=== PATIENT | female | born 1970 | race Caucasian/White ===

== ENCOUNTER → 2017-11-12 | Outpatient (CLI) | payer BC | END | disposition home or self-care (01) | LOC: KCIC US 10:38 | DX: N94.6 Dysmenorrhea, unspecified (principal) | CPT/HCPCS: 76830; 76856 ==

== ENCOUNTER 2019-09-02 23:17 | Emergency (ER) | payer BC ==
[~2019-09-02] VITALS: Ht 162.6 cm; Wt 140.0 kg
[2019-09-02 23:47] LABS: BASO # 0.1 x10^3/uL (0.0-0.2); BASO % 1 % (0-3); EOS % 0 % (0-3); HEMATOCRIT 41.1 % (36.0-47.0); HEMOGLOBIN 14.3 g/dL (12.0-15.5); LYMPH # 1.9 x10^3/uL (1.0-4.8); LYMPH % 16 % (24-48); MEAN CORPUSCULAR HEMOGLOBIN 33 pg (25-35); MEAN CORPUSCULAR HGB CONC 35 g/dL (31-37); MEAN CORPUSCULAR VOLUME 95 fL (79-100); MONO # 0.7 x10^3/uL (0.0-1.1); MONO % 6 % (0-9); NEUT # 9.2 x10^3/uL (1.8-7.7); NEUT % 78 % (31-73); PLATELET COUNT 288 x10^3/uL (140-400); RED BLOOD COUNT 4.31 x10^6/uL (3.50-5.40); RED CELL DISTRIBUTION WIDTH 14.3 % (11.5-14.5); WHITE BLOOD COUNT 11.9 x10^3/uL (4.0-11.0)
[2019-09-02 23:49] LABS: BILIRUBIN,URINE NEGATIVE (NEG); CLARITY,URINE CLEAR; COLOR,URINE YELLOW; NITRITE,URINE NEGATIVE (NEG); PH,URINE 6.5; PROTEIN,URINE 30 mg/dL (NEG-TRACE); UROBILINOGEN,URINE 0.2 mg/dL (0.2 mg/dL)
[2019-09-02 23:56] LABS: AMPHETAMINE/METHAMPHETAMINE NEG (NEG); BARBITURATES NEG (NEG); BENZODIAZEPINES NEG (NEG); CANNABINOIDS NEG (NEG); COCAINE NEG (NEG); METHADONE NEG (NEG); OPIATES NEG (NEG); PHENCYCLIDINE NEG (NEG)
[2019-09-02 23:56] LABS: CALCIUM 9.1 mg/dL (8.5-10.1); CREATININE 0.6 mg/dL (0.6-1.0); GFR 107.6; POTASSIUM 3.6 mmol/L (3.5-5.1)
--- NOTE | 2019-09-02 23:58 | PHYS DOC ---
Past Medical History Past Medical History: Anxiety, Depression, Other Additional Past Medical Histor: ETOH ABUSE (KEVEN MARTINEZ SKI MAKER WOOD) Past Surgical History: Hysterectomy (KEVEN MARTINEZ SKI [employer]KER WOOD) Alcohol Use: Heavy (KEVEN MARTINEZ APRN) Adult General Chief Complaint Chief Complaint: ALCOHOL INTOXICATION HPI HPI Patient is a 48 year old female who presents with was sober from alcohol for 2 years and then began drinking tonight. States she's been drinking all day but would not give me a reason why. Her is here and asking if we can find her a place for rehabilitation. Patient states she drank a 12 pack today. Patient states she is very anxious. Patient has been vomiting. Patient denies any pain, chest pain, shortness of air, abdominal pain, SI, HI, headache, dizziness, , visual changes, numbness or tingling, fevers, diarrhea, weakness. (KEVEN MARTINEZ [employer]) Review of Systems Review of Systems GI: Denies abdominal pain. + nausea, +vomiting, denies bloody stools or diarrhea [] Neurologic: Anxious. Denies headache, focal weakness or sensory changes [] All other systems were reviewed and found to be within normal limits, except as documented in this note. (KEVEN MARTINEZ APRN) Current Medications Current Medications Current Medications Medications (Trade) Dose Ordered Sig/Yury Start Time Stop Time Status Last Admin Dose Admin Famotidine (Pepcid Vial) 20 mg 1X ONCE 09/03/19 04:15 09/03/19 04:16 Ondansetron HCl (Zofran) 4 mg 1X ONCE 09/03/19 04:15 09/03/19 04:16 Sodium Chloride 1,000 ml @ 1,000 mls/hr 1X ONCE 09/03/19 00:00 09/03/19 00:59 DC 09/02/19 23:40 1,000 MLS/HR (STEFAN DICKSON DO) Allergies Allergies Allergies Coded Allergies Type Severity Reaction Last Updated Verified No Known Drug Allergies 09/02/19 No (STEFAN DICKSON DO) Physical Exam Physical Exam Constitutional: Well developed, well nourished, no acute distress, non-toxic appearance. Alcohol intoxication. [] HENT: Normocephalic, atraumatic, bilateral external ears normal, oropharynx moist, no oral exudates, nose normal. [] Eyes: PERRLA, EOMI, conjunctiva normal, no discharge. [] Neck: Normal range of motion, no tenderness, supple, no stridor. [] Cardiovascular:Heart rate regular rhythm, no murmur [] Lungs & Thorax: Bilateral breath sounds clear to auscultation [] Abdomen: Bowel sounds normal, soft, no tenderness, no masses, no pulsatile masses. [] Skin: Warm, dry, no erythema, no rash. [] Back: No tenderness, no CVA tenderness. [] Extremities: No tenderness, no cyanosis, no clubbing, ROM intact, no edema. [] Neurologic: Alert and oriented X 3, normal motor function, normal sensory function, no focal deficits noted. [] Psychologic: Affect normal, judgement normal, mood normal. [] (KEVEN MARTINEZ APRN) Current Patient Data Vital Signs Vital Signs Date Time Temp Pulse Resp B/P (MAP) Pulse Ox O2 Delivery O2 Flow Rate FiO2 09/03/19 02:17 89 20 143/68 (93) 98 Room Air 09/02/19 23:18 98.5 98.5 ([facility]) Lab Values Laboratory Tests Test 09/02/19 23:30 09/02/19 23:35 09/02/19 23:37 White Blood Count 11.9 x10^3/uL (4.0-11.0) H Red Blood Count 4.31 x10^6/uL (3.50-5.40) Hemoglobin 14.3 g/dL (12.0-15.5) Hematocrit 41.1 % (36.0-47.0) Mean Corpuscular Volume 95 fL (79-100) Mean Corpuscular Hemoglobin 33 pg (25-35) Mean Corpuscular Hemoglobin Concent 35 g/dL (31-37) Red Cell Distribution Width 14.3 % (11.5-14.5) Platelet Count 288 x10^3/uL (140-400) Neutrophils (%) (Auto) 78 % (31-73) H Lymphocytes (%) (Auto) 16 % (24-48) L Monocytes (%) (Auto) 6 % (0-9) Eosinophils (%) (Auto) 0 % (0-3) Basophils (%) (Auto) 1 % (0-3) Neutrophils # (Auto) 9.2 x10^3/uL (1.8-7.7) H Lymphocytes # (Auto) 1.9 x10^3/uL (1.0-4.8) Monocytes # (Auto) 0.7 x10^3/uL (0.0-1.1) Eosinophils # (Auto) 0.0 x10^3/uL (0.0-0.7) Basophils # (Auto) 0.1 x10^3/uL (0.0-0.2) Prothrombin Time 13.0 SEC (11.7-14.0) Prothrombin Time INR 1.0 (0.8-1.1) Sodium Level 135 mmol/L (136-145) L Potassium Level 3.6 mmol/L (3.5-5.1) Chloride Level 93 mmol/L (98-107) L Carbon Dioxide Level 32 mmol/L (21-32) Anion Gap 10 (6-14) Blood Urea Nitrogen 4 mg/dL (7-20) L Creatinine 0.6 mg/dL (0.6-1.0) Estimated GFR (Cockcroft-Gault) 107.6 BUN/Creatinine Ratio 7 (6-20) Glucose Level 98 mg/dL (70-99) Calcium Level 9.1 mg/dL (8.5-10.1) Total Bilirubin 0.7 mg/dL (0.2-1.0) Aspartate Amino Transferase (AST) 121 U/L (15-37) H Alanine Aminotransferase (ALT) 139 U/L (14-59) H Alkaline Phosphatase 97 U/L (46-116) Troponin I Quantitative < 0.017 ng/mL (0.000-0.055) Total Protein 7.6 g/dL (6.4-8.2) Albumin 4.2 g/dL (3.4-5.0) Albumin/Globulin Ratio 1.2 (1.0-1.7) Lipase 129 U/L (73-393) Ethyl Alcohol Level 249 mg/dL (0-10) H Urine Collection Type Void Urine Color Yellow Urine Clarity Clear Urine pH 6.5 Urine Specific [place] 1.010 Urine Protein 30 mg/dL (NEG-TRACE) Urine Glucose (UA) Negative mg/dL (NEG) Urine Ketones (Stick) Negative mg/dL (NEG) Urine Blood Large (NEG) Urine Nitrite Negative (NEG) Urine Bilirubin Negative (NEG) Urine Urobilinogen Dipstick 0.2 mg/dL (0.2 mg/dL) Urine Leukocyte Esterase Negative (NEG) Urine RBC 6-10 /HPF (0-2) Urine WBC 1-4 /HPF (0-4) Urine Squamous Epithelial Cells Few /LPF Urine Bacteria 0 /HPF (0-FEW) Urine Opiates Screen Neg (NEG) Urine Methadone Screen Neg (NEG) Urine Barbiturates Neg (NEG) Urine Phencyclidine Screen Neg (NEG) Urine Amphetamine/Methamphetamine Neg (NEG) Urine Benzodiazepines Screen Neg (NEG) Urine Cocaine Screen Neg (NEG) Urine Cannabinoids Screen Neg (NEG) Urine Ethyl Alcohol Pos (NEG) POC Urine HCG, Qualitative Hcg negative (Negative) Laboratory Tests 09/02/19 23:30 Laboratory Tests 09/02/19 23:30 (STEFAN DICKSON DO) EKG EKG Sinus Rhythm and no STEMI[] Interpretation Time: [address] Dickson (KEVEN MARTINEZ APRN) Radiology/Procedures Radiology/Procedures [] (KEVEN MARTINEZ APRN) Course & Med Decision Making Course & Med Decision Making Alert and oriented. Speaks in full clear sentences. PERRLA. Patient is very anxious. No tremors or seen. Patient states when she withdrawal she doesn't usually have kind of a seizure. She does have a history of depression and anxiety. She denies taking any blood thinners. She denies falling or any injuries today. She denies LOC. Lungs are clear to auscultation in all lobes. Vital signs within normal limits. I have spokent to PAT team Maria R and she states she is on her way in to speak with the patient. 0100: Patient reported off to Dr Dickson (KEVEN MARTINEZ APRN) Course & Med Decision Making Patient declines inpatient rehab referral and requests discharge AMA, but then decides to wait for PAT consult. Outpatient resources provided. (STEFAN DICKSON DO) Dragon Disclaimer Dragon Disclaimer This electronic medical record was generated, in whole or in part, using a voice recognition dictation system. (KEVEN MARTINEZ APRN) Departure Departure Impression: Primary Impression: Alcohol abuse Disposition: HOME, SELF-CARE Condition: IMPROVED Referrals: LEIGHANN DUNLAP (PCP) Patient Instructions: Alcohol Problems Scripts Ondansetron Hcl (ZOFRAN) 4 Mg Tablet 1 TAB PO Q6HRS, #10 TAB 0 Refills Prov: STEFAN IDCKSON DO 09/03/19 Famotidine (PEPCID) 20 Mg Tablet 20 MG PO BID, #30 TAB Prov: STEFAN DICKSON DO 09/03/19 KEVEN MARTINEZ APRN Sep 02, 2019 23:58 STEFAN DICKSON DO Sep 03, 2019 04:00
[2019-09-03] MEDS ORDERED: IV NORMAL SALINE 1000ML BAG 1,000 ML IV ONE
[2019-09-03 00:01] LABS: BACTERIA,URINE 0 /HPF (0-FEW); SQUAMOUS EPITHELIAL CELL,UR FEW /LPF
[2019-09-03 00:02] LABS: ALBUMIN 4.2 g/dL (3.4-5.0); ALBUMIN/GLOBULIN RATIO 1.2 (1.0-1.7); TOTAL BILIRUBIN 0.7 mg/dL (0.2-1.0); TOTAL PROTEIN 7.6 g/dL (6.4-8.2)
[2019-09-03] MEDS ORDERED: ONDANSETRON PF 4 MG/2 ML VIAL. IVP ONE ×2 (00:30→04:15)
[2019-09-03] MEDS ORDERED: FAMOTIDINE 20 MG/2 ML VIAL ONE (01:28)
[2019-09-03] MEDS ORDERED: ONDA4TAB7 PO (02:04)
[2019-09-03] MEDS ORDERED: FAMO-63 PO (02:04)
[2019-09-03 02:17] VITALS: BP 143/68
[2019-09-03] MEDS ORDERED: FAMOTIDINE 20 MG/2 ML VIAL IVP ONE (04:15)
--- NOTE | 2019-09-03 05:15 | EKG ---
[facility] [address] [place] [address] Test Date: 2019-09-02 Test Time: 23:55:31 Pat Name: LUBNA HOPKINS Department: Room: Gender: F Solution Developer: : 1970 Requested By: KEVEN MARTINEZ Order Number: [id number] Reading MD: Measurements Intervals [place] Rate: 85 P: 138 IA: 118 QRS: 53 QRSD: 90 T: 69 QT: 384 QTc: 462 Interpretive Statements SINUS RHYTHM NON SPECIFIC ST-T ABNORMALITY (ELEVATION) OTHERWISE NORMAL ECG No previous ECG available for comparison
[2019-09-04] MEDS ORDERED: LORA-434 PO (14:48)
== END 2019-09-03 02:19 | disposition home or self-care (01) ==
LOC: ER 23:17
DX: F10.229 Alcohol dependence with intoxication, unspecified (principal); R11.2 Nausea with vomiting, unspecified; F41.9 Anxiety disorder, unspecified; F32.9 Major depressive disorder, single episode, unspecified; Z90.710 Acquired absence of both cervix and uterus
CPT/HCPCS: 36415; 80053; 80307; 81001; 81025; 83690; 84484; 85025; 85610; 93005; 96361; 96374; 96375; 96376; 99285; G0480; J2405; J3490; J7030

== ENCOUNTER 2019-09-04 14:04 | Emergency (ER) | payer BC ==
[~2019-09-04] VITALS: Ht 162.6 cm; Wt 63.6 kg
[~2019-09-04 14:04] MED LIST: FAMO-63 PO; ONDA4TAB7 PO
[2019-09-04 14:19] VITALS: BP 122/63
[2019-09-04] MEDS ORDERED: LORA-434 PO (14:48)
--- NOTE | 2019-09-04 14:48 | PHYS DOC ---
Past Medical History Past Medical History: Anxiety, Depression, Other Additional Past Medical Histor: ETOH ABUSE Past Surgical History: Hysterectomy Smoking Status: Current Every Day Smoker Alcohol Use: Heavy Adult General Chief Complaint Chief Complaint: alcohol withdrawal HPI HPI Patient is a 48 year old female who presents via EMS secondary to alcohol withdrawal symptoms. The patient has a history of alcohol abuse but has been reji an for the past 2 years until one week ago when she started drinking a 12 pack of beer daily. She was seen in the ER 2 days ago and labs were performed and the patient was given IV fluids and ultimately she decided to be discharged home after considering inpatient detox. She was given a prescription for Zofran and Pepcid. Patient has been taking these prescriptions. She did not drink alcohol yesterday but today she developed some anxiety and shaking-like symptoms so she drank 3 beers and then came to the ER for further assistance. She is here today requesting medication to help with her withdrawal symptoms. She has no history of alcohol withdrawal seizures. Patient denies suicidal or homicidal ideation. Review of Systems Review of Systems All other systems were reviewed and found to be within normal limits, except as documented in this note. Allergies Allergies Allergies Coded Allergies Type Severity Reaction Last Updated Verified No Known Drug Allergies 09/02/19 No Physical Exam Physical Exam Constitutional: Well developed, well nourished, no acute distress, non-toxic appearance. [] HENT: Normocephalic, atraumatic, bilateral external ears normal, oropharynx moist, no oral exudates, nose normal. [] Eyes: PERRLA, EOMI, conjunctiva normal, no discharge. [] Neck: Normal range of motion, no tenderness, supple, no stridor. [] Cardiovascular:Heart rate regular rhythm, no murmur [] Lungs & Thorax: Bilateral breath sounds clear to auscultation [] Abdomen: Bowel sounds normal, soft, no tenderness, no masses, no pulsatile masses. [] Skin: Warm, dry, no erythema, no rash. [] Back: No tenderness, no CVA tenderness. [] Extremities: No tenderness, no cyanosis, no clubbing, ROM intact, no edema. [] Neurologic: Alert and oriented X 3, normal motor function, normal sensory function, no focal deficits noted. [] Psychologic: Affect normal, judgement normal, mood normal. [] Current Patient Data Vital Signs Vital Signs Date Time Temp Pulse Resp B/P (MAP) Pulse Ox O2 Delivery O2 Flow Rate FiO2 09/04/19 14:19 98.4 87 16 122/63 (82) 98 Room Air 98.4 EKG EKG [] Radiology/Procedures Radiology/Procedures [] Course & Med Decision Making Course & Med Decision Making Patient seen for symptoms of all withdrawal. At this time she has declined labs and IV fluids. She is only requesting medications to help with her withdrawal symptoms. She appears very stable at this time; her examination is normal in her vital signs are stable. We'll discharge home with a prescription for Ativan and the patient is also encouraged to stop drinking. Dragon Disclaimer Dragon Disclaimer This electronic medical record was generated, in whole or in part, using a voice recognition dictation system. Departure Departure Impression: Primary Impression: Alcohol abuse Additional Impression: Alcohol withdrawal Disposition: 01 HOME, SELF-CARE Condition: STABLE Referrals: LEIGHANN DUNLAP (PCP) Patient Instructions: Alcohol Withdrawal Additional Instructions: Do not continue to drink if you are using Ativan. Please return to the ER if symptoms worsen. Scripts Lorazepam (ATIVAN) 1 Mg Tablet 1 MG PO TID for alcohol withdrawal, #15 TAB 0 Refills Prov: TAB THRASHER DO 09/04/19 Problem Qualifiers TAB THRASHER DO Sep 04, 2019 14:48
== END 2019-09-04 14:56 | disposition home or self-care (01) ==
LOC: ER 14:04
DX: F10.239 Alcohol dependence with withdrawal, unspecified (principal); F41.9 Anxiety disorder, unspecified; F32.9 Major depressive disorder, single episode, unspecified; F17.200 Nicotine dependence, unspecified, uncomplicated; Z90.710 Acquired absence of both cervix and uterus
CPT/HCPCS: 99284

== ENCOUNTER → 2020-04-19 | Outpatient (CLI) | payer BC, OTHER ==
[~2020-04-19] MED LIST changes: +ALPR0.25 PO; +BUPR150T15 PO; +CELE200C PO; +CETI10TA74 PO; +FLUO40CA9 PO; +LORA-434 PO; +estradiol TOP
[2020-04-19 09:48] LABS: ALBUMIN 4.1 g/dL (3.4-5.0); C-REACTIVE PROTEIN 1.5 mg/L (0-3.3); CALCIUM 9.4 mg/dL (8.5-10.1); CREATININE 0.7 mg/dL (0.6-1.0); GFR 89.7; POTASSIUM 4.1 mmol/L (3.5-5.1)
[2020-04-19 09:58] LABS: BASO # 0.1 x10^3/uL (0.0-0.2); BASO % 1 % (0-3); EOS # 0.2 x10^3/uL (0.0-0.7); EOS % 3 % (0-3); HEMATOCRIT 40.7 % (36.0-47.0); HEMOGLOBIN 13.7 g/dL (12.0-15.5); LYMPH # 2.5 x10^3/uL (1.0-4.8); LYMPH % 33 % (24-48); MEAN CORPUSCULAR HEMOGLOBIN 32 pg (25-35); MEAN CORPUSCULAR HGB CONC 34 g/dL (31-37); MEAN CORPUSCULAR VOLUME 96 fL (79-100); MONO # 0.5 x10^3/uL (0.0-1.1); MONO % 7 % (0-9); NEUT # 4.2 x10^3/uL (1.8-7.7); NEUT % 57 % (31-73); PLATELET COUNT 402 x10^3/uL (140-400); RED BLOOD COUNT 4.25 x10^6/uL (3.50-5.40); RED CELL DISTRIBUTION WIDTH 13.4 % (11.5-14.5); WHITE BLOOD COUNT 7.4 x10^3/uL (4.0-11.0)
--- NOTE | 2020-04-19 14:55 | RAD ---
Chest radiograph 04/19/2020 8:35 AM INDICATION: Tobacco abuse COMPARISON: None available TECHNIQUE: Frontal and lateral views of the chest are provided. FINDINGS: The cardiomediastinal silhouette is within normal limits. There are no pleural effusions. There is no pulmonary vascular congestion. There is no pneumothorax. The lungs are clear. No significant osseous abnormality is identified. IMPRESSION: No acute cardiopulmonary process. Electronically signed by: Anupama Nuno MD (04/19/2020 2:52 PM) [id number]
[2020-04-20 00:08] LABS: HEMOGLOBIN A1C 5.3 % (4.8-5.6)
== END | disposition home or self-care (01) ==
LOC: SURGPAT 15:55
PROVIDERS: ATTEND Orthopaedic Surgery
DX: Z01.812 Encounter for preprocedural laboratory examination (principal); M16.11 Unilateral primary osteoarthritis, right hip; Z96.651 Presence of right artificial knee joint; Z87.891 Personal history of nicotine dependence
CPT/HCPCS: 36415; 71046; 80048; 82040; 82306; 83036; 85025; 85610; 85730; 86140; 87641

== ENCOUNTER 2020-05-11 06:06 | Observation (INO) | payer OTHER ==
[~2020-05-11] VITALS: Ht 161.3 cm; Wt 65.3 kg
[2020-05-11] VITALS (8 sets, daily range): BP systolic 91–102; BP diastolic 48–65
[~2020-05-11 06:06] MED LIST changes: +ACETAMINOPHEN 500 MG TABLET PO PRN; +GABAPENTIN 300 MG CAPSULE. PO PRN; +MELOXICAM 7.5 MG TABLET PO PRN; +MORPHINE SULFATE 5 MG, KETOROLAC 30MG VIAL 30 MG, ROPIVacaine 0.5% PF 60 ML, EPINEPHrin... INT ART ONE; +NALT50TA PO; +TRANEXAMIC ACID 1,000 MG in IV NS 50ML -- 1ST BAG INJ ONE; +ceFAZolin SODIUM IV Push 1 GM VIAL. IVP PRN
[2020-05-11] MEDS: IV RINGERS,LACTATED 1000ML 1,000 ML IV SCH ×2 (06:44→10:43)
[2020-05-11] MEDS ORDERED: LIDOCAINE 2% PF 5 ML VIAL. ONE (07:00)
[2020-05-11] MEDS ORDERED: HYDROmorphone 2 MG/ML VIAL IV PRN (07:00)
[2020-05-11] MEDS ORDERED: PROPOFOL 10 MG/ML (20ML) VIAL. IV ONE (07:00)
[2020-05-11] MEDS ORDERED: fentaNYL PF VIAL 250 MCG/5 ML VIAL ONE (07:00)
[2020-05-11] MEDS ORDERED: fentaNYL PF VIAL 100 MCG/2 ML VIAL IV PRN ×2 (07:00)
[2020-05-11] MEDS ORDERED: ROCURONIUM 50 MG/5 ML VIAL. ONE ×2 (07:00→08:28)
[2020-05-11] MEDS ORDERED: MIDAZOLAM HCL/PF 2 MG/2 ML VIAL. ONE (07:00)
[2020-05-11] MEDS ORDERED: ONDANSETRON PF 4 MG/2 ML VIAL. IV PRN (07:00)
[2020-05-11] MEDS ORDERED: KETAMINE HCL IN NACL, ISO-OSM 50 MG/5 ML SYRINGE ONE (07:03)
[2020-05-11 07:43] LABS: PROTHROMBIN TIME PATIENT 12.6 SEC (11.7-14.0)
[2020-05-11] MEDS ORDERED: ePHEDrine PF IN SALINE 50 MG/10 ML SYRINGE. IV ONE (07:58)
[2020-05-11] MEDS ORDERED: TRANEXAMIC ACID 1,000 MG in IV NS 50ML -- 2ND BAG INJ ONE (08:00)
[2020-05-11] MEDS ORDERED: DEXAMETHASONE SOD PHOS 4 MG/ML VIAL ONE (08:05)
[2020-05-11] MEDS ORDERED: ONDANSETRON PF 4 MG/2 ML VIAL. ONE (08:05)
[2020-05-11] MEDS ORDERED: GLYCOPYRROLATE 1 MG/5 ML VIAL. ONE (08:33)
[2020-05-11] MEDS ORDERED: EPINEPHrine 1 MG/ML VIAL ONE (08:34)
[2020-05-11] MEDS ORDERED: SEVOFLURANE 61 TO 120 MINUTES. IH ONE (08:48)
[2020-05-11] MEDS ORDERED: NEOSTIGMINE METHYLSULFATE 5 MG/5 ML SYRINGE. ONE (08:56)
[2020-05-11] MEDS ORDERED: VANCOMYCIN 1 GM VIAL. ONE (09:43)
[2020-05-11] MEDS ORDERED: HYDROmorphone 2 MG/ML VIAL ONE ×2 (10:00→11:15)
[2020-05-11] MEDS ORDERED: ALPRAZolam 0.25 MG TABLET PO PRN (10:15)
[2020-05-11] MEDS ORDERED: fentaNYL PF VIAL 100 MCG/2 ML VIAL IVP PRN (10:15)
[2020-05-11] MEDS ORDERED: PROCHLORPERAZINE 5 MG TABLET. PO PRN (10:15)
[2020-05-11] MEDS ORDERED: ZOLPIDEM 5 MG TABLET. PO PRN (10:15)
[2020-05-11] MEDS ORDERED: 0.9 % SODIUM CHLORIDE 10 ML DISP.SYRIN. IV PRN (10:15)
[2020-05-11] MEDS ORDERED: ESTRADIOL 0.1 MG TOP SCH (10:15)
[2020-05-11] MEDS ORDERED: diphenhydrAMINE 50 MG/ML VIAL IVP PRN (10:15)
[2020-05-11] MEDS ORDERED: CALCIUM CARBONATE 500 MG TAB.CHEW PO PRN (10:15)
[2020-05-11] MEDS ORDERED: DEXTROSE 50% 25 GM / 50ML DISP.SYRIN. IV PRN (10:15)
[2020-05-11] MEDS ORDERED: PROCHLORPERAZINE 10 MG/2 ML VIAL. ONE (10:36)
[2020-05-11] MEDS ORDERED: MORPHINE SULFATE 2 MG/ML VIAL. ONE (10:36)
[2020-05-11] MEDS: PROCHLORPERAZINE 10 MG/2 ML VIAL. IV PRN ×2 (10:43→11:01)
[2020-05-11] MEDS: MORPHINE SULFATE 2 MG/ML VIAL. IV PRN ×2 (10:44→11:01)
[2020-05-11] MEDS ORDERED: RACEPINEPHRINE 2.25% 0.5 ML NEBU. ONE (11:05)
[2020-05-11] MEDS ORDERED: RACEPINEPHRINE 2.25% 0.5 ML NEBU. NEB ONE (11:09)
--- NOTE | 2020-05-11 11:30 | NUR ---
arrived to the floor per bed from recovery. drowsy but answers questions appropriately. dressing to right hip is clean dry and intact. she has good motion, sensation and pulses bilateral lower extremities. oriented to the room, call light. at bedside. breath sounds are coarse inspiratory and expiratory bilateral lower bases r>l. right middle lobe has an expiratory coarseness. instructed on db and coughing along with incentive spirometer. denies emphysema asthma or copd. denies use of inhaler. she does smoke 1 pack of cigarettes daily. admission history completed.
--- NOTE | 2020-05-11 11:54 | HP ---
ADMIT DATE: 05/11/2020 CHIEF COMPLAINT: Right hip pain. HISTORY OF PRESENT ILLNESS: The patient has had longstanding worsening right hip pain. She states that the hip pain has been much worse since August of this year, very painful with certain movements, use of a treadmill. She can tolerate activity; however, on an elliptical, but if she steps down funny that her leg locks up and she cannot even lift her leg. She indicates no help with intraarticular injection under x-ray other than relief for the first 2 hours. Celebrex does not help. She has been doing much more limping and pain radiates down from the groin area to the knee, gives her some aching at night, but is much worse with activity. She has undergone physical therapy for 3-4 months and that has made the hip stronger, but still very painful and limited in her daily activities. She used to consume large amounts of alcohol, but has quit drinking for over a year and has been on medication and counseling for that. PAST MEDICAL HISTORY: Significant for history of alcohol abuse, depression, anxiety. PAST SURGICAL HISTORY: Total hysterectomy, left cubital tunnel release, and hammertoe surgery on her right foot. FAMILY HISTORY: Lupus in her mother, healthy father, Alzheimer's in her maternal grandmother and grandfather. SOCIAL HISTORY: She was a previous 1 pack per day smoker, but quit a couple of months ago and again no alcohol for the past year. Denies nonprescription drug use. MEDICATIONS: List is reviewed. ALLERGIES: SHE HAS NO KNOWN DRUG ALLERGIES, BUT IS SENSITIVE TO HYDROCODONE IT CAUSES HER NAUSEA. REVIEW OF SYSTEMS: She denies any chest pain, shortness of breath, focal weakness, numbness, tingling, radiating pain into the extremities other than the right groin pain radiating down toward the knee. PHYSICAL EXAMINATION: VITAL SIGNS: Blood pressure 122/71, pulse 100, respirations 18, temperature 97.8. HEENT: Atraumatic, normocephalic. HEART: Regular rate and rhythm. LUNGS: Clear to auscultation bilaterally. ABDOMEN: Benign. EXTREMITIES: She is very tender on any attempted range of motion extremes of her already limited right hip. She has no groin pain. On the left hip over full range of motion. Negative straight leg raise bilaterally. No tenderness over the trochanteric bursa on either side. Normal alignment, stability, bilateral knees and ankles. IMAGING: X-rays show natr-mh-gcil degenerative joint of the right hip. ASSESSMENT: Primary osteoarthritis, right hip. TREATMENT PLAN: She has continued to maintain no alcohol intake and has really diligently decreased her smoking. She is very limited by her pain with activities of daily living and we had talked about the possibility of total hip arthroplasty and the possibility of infection, nerve or blood vessel damage, instability, premature wear or loosening, medical or other anesthetic complications among others. All her questions were answered. She wishes to proceed with surgical evaluation and treatment, having given informed consent and she will be in for observation postoperatively. MU LEVY MD DR: DEIDRA/aparna JOB#: [id number] / [id number]
[2020-05-11] MEDS: ONDANSETRON PF 4 MG/2 ML VIAL. IVP SCH ×2 (12:00→18:00)
[2020-05-11] MEDS: ONDANSETRON ODT 4 MG TAB.RAPDIS. PO SCH ×3 (12:00→23:25)
--- NOTE | 2020-05-11 12:50 | NUR ---
Zofran held po/IV at this time, sleeping, no nausea or vomiting noted
[2020-05-11] MEDS: ceFAZolin SODIUM IV Push 1 GM VIAL. IVP SCH ×2 (13:34→19:29)
--- NOTE | 2020-05-11 14:11 | PDOC4 ---
Operative Note Operative Note Date of surgery: 05/11/2020 Preoperative diagnosis: Degenerative joint disease right hip Postoperative diagnosis: Same Operative procedure: Right total hip arthroplasty with anterior approach Surgeon Alma Delia Director Asset: Pierre Golden nurse practitioner Anesthesia: General Estimated blood loss: 250 cc Complications: None Drains: None Operative indications: Please see my orthopedic clinic note and dictated history and physical for detailed operative indications and note that we covered risks benefits postoperative course of the procedure. All her questions were answered and she wishes to proceed with surgical evaluation and treatment having given informed consent Operative text: Patient was identified procedure verified patient placed in the supine position on the [place] fracture table after adequate amounts of general anesthesia were administered. All bony prominences were well-padded and right hip was prepped and draped in the standard sterile fashion. After timeout was performed patient procedure identified and verified an incision was made just distal to the anterior superior iliac spine running along the tensor fascia isabel for a distance of about 4 inches. Fascia was incised tensor fascia isabel was taken laterally and circumflex vessels were located and coagulated and the anterior capsule was exposed with the rectus femoris gently retracted medially along with the underlying fascia that was dissected free. Capsule was split in a T-shaped incision and superior aspect of the capsule was excised and further superior release was carried out with the hip in external rotation. Hip was returned to 40 degrees external rotation and a napkin ring cut was made with an Avenir [place] broach for reference napkin ring was removed and femoral head was removed and sized. Reaming was carried out from a size 43 to a size 47 with a size 48 cluster hole cup placed in proper version and alignment under fluoroscopic guidance and achieved a very solid scratch fit and therefore no screw fixation was applied. A 32 mm vitamin E liner was impacted into place. Femur was brought into maximum external rotation extension and adduction and release was carried out at the 11 o'clock position to free up the femur and re tractors were placed medially and above the greater trochanter for maximum femoral exposure box osteotome was used along with the rattail rasp and successive size broaching up to a size 3 which provided excellent stability and fit within the canal. Calcar reaming was carried out and trial fitting with a - 3.5 32 mm head to reproduce leg length and offset appropriately. This was ve rified under fluoroscopic guidance. Trial components were removed and a size 3 standard offset collared Avenir stem was impacted into place with a -3.5 ceramic 32 mm head. Excellent stability and range of motion were noted and leg length reproduced according to measurements from the contralateral side. Thorough irrigation carried out with dilute Betadine solution and then washed further with normal saline solution and pulse lavage. Intra-articular mixture was injected subperiosteally throughout the joint capsule and subcutaneous areas. Fascia was closed with #1 PDS strata fix suture in a running fashion subcutaneous closure with buried Vicryl skin closure with subcuticular Monocryl and a lee dressing was applied. Patient was returned to recovery room in stable condition having tolerated the procedure well. Pierre Golden nurse practitioner was present for the procedure and assisted in the patient positioning prepping draping retraction closure and dressings MU LEVY MD May 11, 2020 14:11
[2020-05-11] MEDS ORDERED: WARFARIN 7.5 MG TABLET. PO ONE (16:00)
[2020-05-11] MEDS: FERROUS SULFATE 325 MG TABLET. PO SCH (17:17)
--- NOTE | 2020-05-11 18:00 | NUR ---
Tolerating po fluids. No n/v. Held Zofran po and IV.
[2020-05-11] MEDS: IV NORMAL SALINE 1000ML BAG 1,000 ML IV SCH ×2 (18:29→23:13)
[2020-05-11] MEDS: oxyCODONE IR 5 MG TABLET PO PRN ×2 (19:37→23:25)
[2020-05-11] MEDS: FAMOTIDINE 20 MG TABLET. PO SCH (20:45)
[2020-05-12] MEDS: MORPHINE SULFATE 2 MG/ML VIAL. IVP PRN ×2 (01:31→14:41)
[2020-05-12] MEDS: ceFAZolin SODIUM IV Push 1 GM VIAL. IVP SCH (01:39)
[2020-05-12 03:03] VITALS: BP 96/80
[2020-05-12 05:03] LABS: HEMATOCRIT 27.4 % (36.0-47.0); HEMOGLOBIN 9.3 g/dL (12.0-15.5)
[2020-05-12 05:07] LABS: PROTHROMBIN TIME PATIENT 15.7 SEC (11.7-14.0)
[2020-05-12] MEDS: GABAPENTIN 100 MG CAPSULE. PO SCH ×3 (06:00→22:30)
[2020-05-12] MEDS ORDERED: MAGNESIUM HYDROXIDE 2,400 MG/30 ML ORAL.SUSP. PO PRN (06:00)
[2020-05-12] MEDS: ONDANSETRON PF 4 MG/2 ML VIAL. IVP SCH ×2 (06:00)
[2020-05-12 06:15] VITALS: BP 107/65
[2020-05-12] MEDS: traMADol 50 MG TABLET PO SCH ×4 (06:16→23:40)
[2020-05-12] MEDS: ONDANSETRON ODT 4 MG TAB.RAPDIS. PO SCH (06:16)
--- NOTE | 2020-05-12 08:00 | NUR ---
sitting up in recliner. encouraged to db and cough. she had a expiratory wheeze in her right lower lobe that cleared after coughing
[2020-05-12] MEDS: FAMOTIDINE 20 MG TABLET. PO SCH ×2 (08:13→20:39)
[2020-05-12] MEDS: ACETAMINOPHEN 500 MG TABLET PO SCH ×3 (08:13→20:39)
[2020-05-12] MEDS: FLUoxetine HCL 20 MG CAPSULE PO SCH (08:13)
[2020-05-12] MEDS: MULTIVITAMIN with MINERAL TABLET. PO SCH (08:13)
[2020-05-12] MEDS: CETIRIZINE HCL 10 MG TABLET. PO SCH (08:13)
[2020-05-12] MEDS: buPROPion XL 150 MG TAB.ER.24H. PO SCH (08:13)
[2020-05-12] MEDS: FERROUS SULFATE 325 MG TABLET. PO SCH ×2 (08:13→17:03)
[2020-05-12] MEDS: MELOXICAM 7.5 MG TABLET PO SCH (08:14)
[2020-05-12] MEDS: oxyCODONE IR 5 MG TABLET PO PRN ×4 (08:16→22:30)
--- NOTE | 2020-05-12 08:30 | PDOC ---
PROGRESS NOTES Date of Service DATE: 05/12/20 TIME: 08:27 Subjective Subjective Problems overnight: Right hip is sore this morning but got up and around yesterday with therapy and to the bathroom Objective Vital Signs Vital Signs Date Time Temp Pulse Resp B/P (MAP) Pulse Ox O2 Delivery O2 Flow Rate FiO2 05/12/20 06:16 20 Room Air 05/12/20 06:15 99.6 103 107/65 (79) 99 99.6 05/11/20 15:30 2.0 Physical Exam Leg lengths equal distal neurovascular status intact no drainage visible Labs Laboratory Tests Test 05/11/20 06:40 05/12/20 04:25 Prothrombin Time 12.6 SEC (11.7-14.0) 15.7 SEC (11.7-14.0) Prothromb Time International Ratio 1.0 (0.8-1.1) 1.3 (0.8-1.1) Activated Partial Thromboplast Time 35 SEC (24-38) Hemoglobin 9.3 g/dL (12.0-15.5) Hematocrit 27.4 % (36.0-47.0) Mean Corpuscular Hemoglobin Concent 34 g/dL (31-37) Laboratory Tests Test 05/12/20 04:25 Hemoglobin 9.3 g/dL (12.0-15.5) Hematocrit 27.4 % (36.0-47.0) Mean Corpuscular Hemoglobin Concent 34 g/dL (31-37) Prothrombin Time 15.7 SEC (11.7-14.0) Prothromb Time International Ratio 1.3 (0.8-1.1) Imaging Intra-Op fluoroscopy shows excellent positioning total hip arthroplasty with equal leg lengths and offset Assessment Assessment POD#1 right total hip arthroplasty Plan Plan of Care Continue weightbearing as tolerated no hip precautions necessary due to anterior hip arthroplasty just avoid extreme range of motion Coumadin anticoagulation Plan on outpatient physical therapy with [facility] in [place] and has an appointment tentatively on Sunday Justicifation of Admission Dx: Justifications for Admission: Justification of Admission Dx: N/A MU LEVY MD May 12, 2020 08:29
[2020-05-12] MEDS ORDERED: FLU VACC QS 2020-21(6MOS+)/PF 0.5 ML SYRINGE. VAX IM ONE (09:00)
--- NOTE | 2020-05-12 10:14 | NUR ---
Pharmacy Warfarin Dosing Note S:Pharmacy consulted to assist with anticoagulation therapy started with target INR: 1.6 - 2.5 O:LUBNA HOPKINS is a 49 year old F with ISABELL LABS: Last INR: 1.3 Last HGB: 9.3 Last HCT: 27.4 Last PLT: -- Last dose of 7.5 mg given on 05/11/20 at 1717 Drug Interaction Changes: Same Interacting Drug Ongoing Drug Interactions: Meloxicam, Fluoxetine A:INR of 1.3 is below desired range. Target range for this patient is: 1.6 - 2.5 P: Warfarin dose: 5 mg Today at 1600 Bridge Therapy: None Next INR due 05/13/20 Pharmacy anticoagulation service will continue to follow. KARINA OSPINA RPH, 05/12/20 1011
[2020-05-12] MEDS ORDERED: ONDANSETRON PF 4 MG/2 ML VIAL. IVP PRN (12:00)
[2020-05-12] MEDS ORDERED: ONDANSETRON ODT 4 MG TAB.RAPDIS. PO PRN (12:00)
[2020-05-12 13:11] VITALS: BP 100/60
[2020-05-12] MEDS ORDERED: BISACODYL 10 MG SUPP.RECT. PR PRN (16:00)
[2020-05-12] MEDS ORDERED: WARFARIN 5 MG TABLET. PO ONE (16:00)
[2020-05-12 18:02] VITALS: BP 102/54
[2020-05-13] MEDS: ACETAMINOPHEN 500 MG TABLET PO SCH ×4 (02:57→21:00)
[2020-05-13] MEDS: oxyCODONE IR 5 MG TABLET PO PRN ×4 (02:58→16:28)
[2020-05-13 05:42] VITALS: BP 95/64
[2020-05-13] MEDS: GABAPENTIN 100 MG CAPSULE. PO SCH ×2 (05:48→14:59)
[2020-05-13] MEDS: traMADol 50 MG TABLET PO SCH ×3 (05:49→18:00)
[2020-05-13] MEDS ORDERED: SENNOSIDES 8.6 MG TABLET PO PRN (07:30)
[2020-05-13] MEDS: MELOXICAM 7.5 MG TABLET PO SCH (08:08)
[2020-05-13] MEDS: buPROPion XL 150 MG TAB.ER.24H. PO SCH (08:08)
[2020-05-13] MEDS: FAMOTIDINE 20 MG TABLET. PO SCH ×2 (08:09→21:00)
[2020-05-13] MEDS: CETIRIZINE HCL 10 MG TABLET. PO SCH (08:09)
[2020-05-13] MEDS: FLUoxetine HCL 20 MG CAPSULE PO SCH (08:09)
[2020-05-13] MEDS: MULTIVITAMIN with MINERAL TABLET. PO SCH (08:09)
[2020-05-13] MEDS: FERROUS SULFATE 325 MG TABLET. PO SCH ×2 (08:09→17:00)
[2020-05-13 08:11] LABS: HEMATOCRIT 30.2 % (36.0-47.0); HEMOGLOBIN 10.5 g/dL (12.0-15.5)
[2020-05-13 08:26] LABS: PROTHROMBIN TIME PATIENT 21.5 SEC (11.7-14.0)
[2020-05-13] MEDS: IV NORMAL SALINE 1000ML BAG 1,000 ML IV SCH (10:11)
--- NOTE | 2020-05-13 11:03 | NUR ---
Pharmacy Warfarin Dosing Note S: Pharmacy consulted to assist with anticoagulation therapy started 05/11/20 O: LUBNA HOPKINS is a 49 year old F with a ISABELL LABS: Last INR: 1.9 Last HGB: 10.2 Last HCT: 30.2 Last PLT: -- Last dose of 5 mg given on 05/12/20 at 1703 Ongoing Drug Interactions: Meloxicam, Fluoxetine A:INR of 1.9 is within desired range. Target range for this patient is: 1.6 - 2.5 P: Warfarin dose: 3 mg prior to discharge. Patient will discharge on warfarin 3 mg/day. Next INR due SundayMay 17 Pharmacy anticoagulation service will continue to follow. NICOLASA MENDOZA [facility], 05/13/20 [id number]
[2020-05-13] MEDS ORDERED: SIMETHICONE 80 MG TAB.CHEW PO PRN (12:15)
[2020-05-13 14:46] VITALS: BP 108/63
[2020-05-13] MEDS ORDERED: WARFARIN 3 MG TABLET. PO ONE (15:00)
[2020-05-13 18:06] VITALS: BP 96/61
--- NOTE | 2020-05-13 20:10 | NUR ---
Dr. Flannery here to see Patient and finalized discharge orders.
--- NOTE | 2020-05-13 20:16 | NUR ---
Reviewed instructions in Going home after Total joint replacement book reviewed with Patient, questions answered and Patient verbalized understanding.
[2020-05-13] MEDS ORDERED: WARF3TAB50 PO (20:20)
[2020-05-13] MEDS ORDERED: OXYC5CAP PO (20:20)
--- NOTE | 2020-05-13 20:21 | DISCH ---
DISCHARGE INSTRUCTIONS Condition on Discharge Condition on Discharge: Stable Activity After Discharge Activity Instructions for Disc: Activity as tolerated, Progressive ambulation Bathing Instructions: Shower-keep dressing dry, No Tub Bath until see Lifting Instructions after Dis: No heavy lifting, No pulling or pushing Exercise Instruction after Dis: Exercise per therapy, Progress as tolerated Driving Instructions after Dis: Do not drive Weight Bearing Status after Di: Full weight bearing Diet after Discharge Diet after Discharge: Regular Diet Texture: Regular Liquid Texture: Thin Liquid Swallowing Supervision: None needed Wound Incision Care Wound/Incision Care: Ice to area for comfort, Keep wound elevated, Do not change dressing (Tape over outlet when suction machine stops working at 1 week) Community/Resources/Services Services at Discharge: Outpatient Therapy Contacting the [facility] after DC Call your doctor for: Concerns you may have Follow-Up Follow Up With: Follow up with Dr. Flannery on May 26 at 1000 am Treatment/Equipment after DC Adaptive Equipment Issued: Walker Warfarin Follow-Up Warfarin Follow UP: Warfarin dosage per [facility] and blood testing as MU FLANNERY MD May 13, 2020 20:21
--- NOTE | 2020-05-13 21:00 | NUR ---
Patient discharge orders completed by Dr. Flannery. Prescription given to patient and copy of prescription made and placed on chart. Discharge Patient visit summary printed and reviewed with Patient, copy of summary given to Patient. Patient verbalized understanding and denied questions or concerns. Signature page signed and copy given to Patient. Patient discharged to home with all belongings and walker. Patient assisted to ER exit per wheelchair with this RN to her husbands car and safely assisted into seat of car per this RN. Patient denies any c/o concerns.
--- NOTE | 2020-05-14 12:07 | PATHOLOGY ---
[facility] Accession Number: [id number] . 01 Material submitted: . hip - RIGHT HIP BONE AND TISSUE. Modifiers: right . 01 Clinical history: . OA . 02 Diagnosis: Bone and soft tissue "right hip", arthroplasty: - Fraying/fragmentation and erosion of articular cartilage with underlying eburnation of subchondral bone and fat necrosis of marrow space, consistent with osteoarthritis. - Proliferative synovitis. (MLK:sylvia; 05/13/2020) QMS 05/14/2020 1125 Local . 02 Electronically signed: . Fernando Marie MD, Pathologist NPI- [id number] . 01 Gross description: . Received in formalin labeled "Patti Beard, right hip bone and tissue" is a femoral head specimen measuring 5.2 x 5.0 x 4.3 cm. The articular surface displays roughening and eburnation over a 4.6 x 4.3 cm area. Peripheral osteophytes are present. The resection margin is smooth and consistent with a surgical margin. Also present within the container are multiple additional fragments of tam-white bone measuring in aggregate 4.5 x 4.3 x 0.8 cm. [employer] sections are submitted after decalcification as follows: A1-A4 cross section of femoral head A5 additional real estate representative bone ([facility]; 05/11/2020) SYC/SYC 05/11/2020 1852 Local . 02 Pathologist provided ICD-10: M65.9 . 02 CPT . 717400, [id number] Specimen Comment: A courtesy copy of this report has been sent to [phone], [phone] Specimen Comment: [id number] Specimen Comment: Report sent to / DR HANNA Performed at: [address] [place], [place] [id number] [facility] [address], [place], [place] [id number] MD Hebert Giron MD Phone: [phone] Performed at: [address] [id number] MD Jatin Ibarra MD Phone: [phone]
--- NOTE | 2020-05-16 11:11 | DS ---
DATE OF DISCHARGE: 05/13/2020 PRINCIPAL DIAGNOSIS: Degenerative joint disease, right hip. PROCEDURE: Right total hip arthroplasty. DISPOSITION MEDICATIONS: Oxycodone 5 mg p.o. q. 4 hours p.r.n. pain, dispensed #60, warfarin sodium as directed by [facility], resume preoperative medications. ACTIVITY: As tolerated except avoid extremes of range of motion of right hip. DISCHARGE INSTRUCTIONS: Follow up with Dr. Flannery in 2 weeks. Maintain TRACY dressing, call if saturated. When suction machine stops cut tail of dressing and tape over to remains sealed. Report any redness, drainage, erythema, fever, chills, uncontrolled pain or other problems. BRIEF DESCRIPTION OF HOSPITAL COURSE: The patient underwent uncomplicated right total hip arthroplasty from an anterior approach and postoperatively, had expected soreness, but ambulated well with physical therapy, remained in stable medical condition and was discharged on postop day #2 to home in stable condition with planned outpatient physical therapy. MU FLANNERY MD DR: DEIDRA/aparna JOB#: [id number] / [id number]
--- NOTE | 2020-05-24 07:49 | NUR ---
Stop time for NaCL given at 18:29 on 05/11 is 2313 Stop time for NaCl given at 23:13 on 05/11 stopped at 2330 on 05/12
== END 2020-05-13 21:00 | disposition home or self-care (01) ==
LOC: SURG 06:06 → 4 SOUTHEST 10:11
PROVIDERS: ADMIT Orthopaedic Surgery; ATTEND Orthopaedic Surgery
DX: M16.11 Unilateral primary osteoarthritis, right hip (principal); F41.9 Anxiety disorder, unspecified; F32.9 Major depressive disorder, single episode, unspecified; F10.10 Alcohol abuse, uncomplicated; Z90.710 Acquired absence of both cervix and uterus; Z98.890 Other specified postprocedural states; Z87.891 Personal history of nicotine dependence; Z96.641 Presence of right artificial hip joint; Z79.01 Long term (current) use of anticoagulants; Z23 Encounter for immunization
CPT/HCPCS: 27130; 36415; 76000; 85014; 85018; 85610; 85730; 86850; 86900; 86901; 88304; 88311; 90471; 90686; 94640; 96361; 96374; 96375; 96376; 97116; 97150; 97162; 97165; 97530; 97535; 99406; A7015; C1887; G0378; G0379; J0171; J0690; J0780; J1100; J1170; J1885; J2270; J2405; J2704; J2710; J2795; J3010; J3370; J3490; J7030; J7120; J2250